=== PATIENT | female | born 1980 | race African-American/Black ===

== ENCOUNTER 2020-03-31 17:14 | Emergency (ER) | payer MEDICAID ==
[~2020-03-31] VITALS: Ht 162.6 cm; Wt 54.5 kg
[~2020-03-31 17:14] MED LIST: NOCURR
[2020-03-31] MEDS: ACETAMINOPHEN 325 MG TABLET PO ONE (19:47)
[2020-03-31 20:05] VITALS: BP 122/78
== END 2020-03-31 20:26 | disposition home or self-care (01) ==
LOC: EMS 17:14
DX: M54.9 Dorsalgia, unspecified (principal); V98.8XXA Other specified transport accidents, initial encounter; Y93.89 Activity, other specified; Y92.488 Other paved roadways as the place of occurrence of the external cause; Y99.8 Other external cause status
CPT/HCPCS: 72070; 72100; 99284; Z7502; Z7610